=== PATIENT | female | born 1975 | race Asian ===

== ENCOUNTER → 2017-04-24 | Day surgery (SDC) | payer BC ==
[~2017-04-24] MED LIST: HYDROmorphone 2 MG/ML VIAL IV; IV RINGERS,LACTATED 1000ML 1,000 ML IV; LIDOCAINE 1% PF 2 ML VIAL. ID; MORPHINE SULFATE 2 MG/ML DISP.SYRIN. IV; ONDANSETRON PF 4 MG/2 ML VIAL. IV; PROCHLORPERAZINE 10 MG/2 ML VIAL. IV; PROPOFOL 40 ML IV; fentaNYL PF VIAL 100 MCG/2 ML VIAL IV
[2017-04-24] MEDS: IV RINGERS,LACTATED 1000ML 1,000 ML IV (10:00)
[2017-04-24 11:03] LABS: NEG OBC UR NEG; POS OBC UR POS
== END | disposition home or self-care (01) ==
LOC: ENDOS 09:31
DX: K64.0 First degree hemorrhoids (principal); K25.9 Gastric ulcer, unspecified as acute or chronic, without hemorrhage or perforation; K21.0 Gastro-esophageal reflux disease with esophagitis; I10 Essential (primary) hypertension; K21.9 Gastro-esophageal reflux disease without esophagitis; Z88.6 Allergy status to analgesic agent; Z88.0 Allergy status to penicillin
CPT/HCPCS: 43239; 81025; 88305; 88342; J2704